=== PATIENT | female | born 1935 | race Caucasian/White ===

== ENCOUNTER → 2023-07-09 | Day surgery (SDC) | payer MEDICARE, BC ==
[~2023-07-09] MED LIST: Lidocaine 1% 30 ML SDV ONE; Lidocaine 1% 30 ML SDV SUBCUT ONE
== END ==
LOC: CC.SDS 06:46
PROVIDERS: ATTEND Family Medicine
DX: I87.2 Venous insufficiency (chronic) (peripheral) (principal); Z88.2 Allergy status to sulfonamides; Z79.899 Other long term (current) drug therapy; Z87.891 Personal history of nicotine dependence
CPT/HCPCS: C1888; J3490

== ENCOUNTER 2023-07-23 05:11 | Emergency (ER) | payer MEDICARE, BC | END 2023-07-23 08:00 | disposition home or self-care (01) | LOC: CC.ED 05:11 | DX: K59.03 Drug induced constipation (principal); T40.2X5A Adverse effect of other opioids, initial encounter; Z88.2 Allergy status to sulfonamides; Z87.891 Personal history of nicotine dependence | CPT/HCPCS: 99283; 99284 ==